=== PATIENT | female | born 1995 | race Caucasian/White ===

== ENCOUNTER 2019-07-17 01:44 | Emergency (ER) | payer BC ==
[~2019-07-17] VITALS: Ht 162.6 cm; Wt 109.1 kg
[2019-07-17 02:19] VITALS: BP 134/74; TEMP 98.6
[2019-07-17 04:34] VITALS: PULSE 83
== END 2019-07-17 04:34 | disposition home or self-care (01) ==
LOC: COL.ER 01:44
DX: Z32.02 Encounter for pregnancy test, result negative (principal); R11.2 Nausea with vomiting, unspecified; R51 Headache; R05 Cough; E66.01 Morbid (severe) obesity due to excess calories

== ENCOUNTER 2023-11-12 02:34 | Inpatient (IN) | payer MEDICAID ==
[2023-11-12] VITALS (27 sets, daily range): BP systolic 112–150; BP diastolic 55–96; PULSE 70–93; TEMP 97.9–98.2
[~2023-11-12] VITALS: Ht 162.6 cm; Wt 161.4 kg
[2023-11-12] MEDS ORDERED: LR 1,000 ML IV PRN (04:00)
[2023-11-12] MEDS ORDERED: PRENATAL 19 CH1 EACH PO (04:19)
[2023-11-12] MEDS ORDERED: NATURAL IRON65 MG PO ×2 (04:20→04:21)
[2023-11-12] MEDS ORDERED: LR 1,000 ML IV SCH (04:30)
[2023-11-12] MEDS ORDERED: LR & Oxytocin 500 ML IV SCH (04:30)
[2023-11-12] MEDS ORDERED: Penicillin G Potassium 5,000,000 UNITS in NS 100 ML IV ONE (04:30)
[2023-11-12 05:19] LABS: BASO % 0.3 % (0.0-2.0); EOS # 0.1 K/mm3 (0.0-0.7); EOS % 1.1 % (0.0-4.0); GRAN # 7.3 K/mm3 (1.4-6.5); GRAN % 70.1 % (42.2-75.2); HEMOGLOBIN 11.9 g/dl (12.5-16.0); LYMPH # 2.3 K/mm3 (1.2-3.4); LYMPH % 21.7 % (20.0-51.0); MEAN CELL VOLUME 83 fl (80.0-100.0); MEAN CORPUSCULAR HEMOGLOBIN 28 pg (27-31); MEAN CORPUSCULAR HGB CONC 34 g/dl (33.0-37.0); MEAN PLATELET VOLUME 9.4 fl (7.4-10.4); MONO # 0.7 K/mm3 (0.1-0.6); MONO % 6.4 % (1.7-9.3); PLATELET COUNT 194 K/mm3 (130-400); RED BLOOD COUNT 4.28 M/mm3 (4.10-5.30); REDCELL DISTRIBUTION WIDTH-CV 13.2 % (11.5-14.5)
[2023-11-12 05:20] LABS: HEMATOCRIT 35.3 % (37.0-47.0)
[2023-11-12] MEDS ORDERED: Penicillin G Potassium 2,500,000 UNITS in NS 100 ML IV SCH (08:30)
[2023-11-12] MEDS ORDERED: ROPivacaine PF 0.2% 200 ML IV ONE (08:41)
[2023-11-12] MEDS ORDERED: Lidocaine PF 2% (20 MG/ML) 5 ML VIAL ONE (08:45)
[2023-11-12] MEDS ORDERED: Ibuprofen 800 MG TAB PO SCH (12:15)
[2023-11-12] MEDS ORDERED: Acetaminophen 500 MG TAB PO PRN (12:15)
[2023-11-12] MEDS ORDERED: Measles/Mumps/Rubella Virus Vaccine Live w Diluent 0.5 ML VIAL SQ SCH (12:15)
[2023-11-12] MEDS ORDERED: Witch Hazel 50% Pads Bulk TUB TP PRN (12:15)
[2023-11-12] MEDS ORDERED: Loratadine 10 MG TAB PO PRN (12:15)
[2023-11-12] MEDS ORDERED: Mag/Al Hydrox/Simeth Susp 30 ML CUP PO PRN (12:15)
[2023-11-12] MEDS ORDERED: Naloxone 0.4 MG/ML VIAL IV PRN ×2 (12:15→12:45)
[2023-11-12] MEDS ORDERED: Phenylephrine/Mineral Oil/Petrolatum 57 GM TUBE RC PRN (12:15)
[2023-11-12] MEDS ORDERED: oxyCODONE 5 MG TAB PO PRN (12:15)
[2023-11-12] MEDS ORDERED: Magnes Hydrox (MOM) 80 MG/ML 30 ML CUP PO PRN (12:15)
[2023-11-12] MEDS ORDERED: diphenhydrAMINE 25 MG CAP PO PRN (12:45)
[2023-11-12] MEDS ORDERED: Ondansetron 4 MG/2 ML VIAL IV PRN (12:45)
[2023-11-12] MEDS ORDERED: ePHEDrine 50 MG/10 ML VIAL IV PRN (12:45)
[2023-11-12] MEDS ORDERED: diphenhydrAMINE 50 MG/ML 1 ML VIAL IV PRN (12:45)
[2023-11-12] MEDS ORDERED: Sennosides/Docusate 8.6-50 MG TAB PO SCH (17:00)
[2023-11-12] MEDS ORDERED: MOTRIN 800800 MG/TAB PO (17:39)
[2023-11-12] MEDS ORDERED: traZODone 50 MG TAB PO PRN (21:00)
[2023-11-13 04:10] VITALS: BP 120/72; PULSE 79; TEMP 98.3
[2023-11-13 08:40] VITALS: BP 148/86; PULSE 90
[2023-11-13 09:45] VITALS: BP 138/79; PULSE 86
== END 2023-11-13 15:15 | disposition home or self-care (01) | DRG 807 ==
LOC: LDRO 02:34 → LDR 02:40 → LDRO 04:22 → LDR 04:23 → OB 04:23
PROVIDERS: Obstetrics & Gynecology; ADMIT Obstetrics & Gynecology
PROC: 10D07Z6 Extraction of Products of Conception, Vacuum, Via Natural or Artificial Opening (ICD-10-PCS; principal; 2023-11-12)
PROC: 0HQ9XZZ Repair Perineum Skin, External Approach (ICD-10-PCS; 2023-11-12)
DX: O99.214 Obesity complicating childbirth (principal); Z37.0 Single live birth; Z3A.39 39 weeks gestation of pregnancy; O99.824 Streptococcus B carrier state complicating childbirth; O76 Abnormality in fetal heart rate and rhythm complicating labor and delivery; R03.0 Elevated blood-pressure reading, without diagnosis of hypertension; O99.02 Anemia complicating childbirth; D64.9 Anemia, unspecified; F32.A Depression, unspecified; F41.9 Anxiety disorder, unspecified; O99.344 Other mental disorders complicating childbirth; O69.81X0 Labor and delivery complicated by cord around neck, without compression, not applicable or unspecified; O35.8XX0 Maternal care for other (suspected) fetal abnormality and damage, not applicable or unspecified; O77.0 Labor and delivery complicated by meconium in amniotic fluid; O70.0 First degree perineal laceration during delivery; Z23 Encounter for immunization
CPT/HCPCS: J2540; J2590; J2795; J7120